=== PATIENT | male | born 1980 | race Caucasian/White ===

== ENCOUNTER → 2020-09-25 | Emergency (ER) | payer OTHER ==
[~2020-09-25] VITALS: Ht 175.3 cm; Wt 79.4 kg
[~2020-09-25] MED LIST: BACTRIM DS TAB1 EACH PO; DICLOFENAC SODI75 MG PO
== END | disposition home or self-care (01) ==
LOC: ER 18:09
DX: L02.416 Cutaneous abscess of left lower limb (principal)